=== PATIENT | male | born 1970 | race Two or more races ===

== ENCOUNTER 2017-04-17 06:34 | Emergency (ER) | payer OTHER ==
[~2017-04-17] VITALS: Ht 172.7 cm; Wt 79.4 kg
--- NOTE | 2017-04-17 06:45 | NUR ---
To bed 7 a 47 yo male bibself w c/o right knee pain s/p slipped and fall on [email or web address] 8 days ago. Distal CMS intact. Ambulatory. VSS. Comfort measures rendered.
--- NOTE | 2017-04-17 06:48 | NUR ---
xr at bedside.
[2017-04-17] MEDS ORDERED: IBUPROFEN 400 MG TABLET ONE (06:49)
[2017-04-17] MEDS ORDERED: IBUPROFEN 400 MG TABLET PO ONE (07:00)
[2017-04-17 08:00] VITALS: BP 124/62
== END 2017-04-17 08:13 | disposition home or self-care (01) ==
LOC: ER 06:34
DX: M25.461 Effusion, right knee (principal)
CPT/HCPCS: 73564-TC; A4606; Z7610